=== PATIENT | male | born 1970 | race Caucasian/White ===

== ENCOUNTER 2023-02-14 11:23 | Emergency (ER) | payer OTHER ==
[~2023-02-14] VITALS: Ht 185.4 cm; Wt 101.2 kg
[2023-02-14 11:38] VITALS: O2SAT 97
[2023-02-14] MEDS ORDERED: IBUPROFEN 600 MG TAB PO STA ×2 (11:43→11:47)
[2023-02-14] MEDS ORDERED: IBUPROFEN 600 MG TAB ONE (11:46)
== END 2023-02-14 14:26 | disposition home or self-care (01) ==
LOC: FSED 11:43
DX: S60.212A Contusion of left wrist, initial encounter (principal); W20.8XXA Other cause of strike by thrown, projected or falling object, initial encounter; Y93.H2 Activity, gardening and landscaping; Y92.89 Other specified places as the place of occurrence of the external cause
CPT/HCPCS: 99283